=== PATIENT | female | born 1960 | race Caucasian/White ===

== ENCOUNTER 2022-12-03 11:15 | Emergency (ER) | payer OTHER, SELFPAY ==
[2022-12-03 11:22] VITALS: BP 145/93; PULSE 82; RESP 20; TEMP 37.2; O2SAT 100
--- NOTE | 2022-12-03 12:08 | ED.URI ---
HPI - URI/Sore Throat General Chief Complaint: Upper Respiratory Infection Stated Complaint: Sore Throat/Headache Time Seen by Provider: 12/03/22 12:00 Source: patient, RN notes reviewed and old records reviewed Mode of arrival: ambulatory Limitations: no limitations History of Present Illness HPI Narrative: 62 year old female who presents to [facility] with complaints of 3-4 day history of mild headache and some low grade fevers highest 99.6F, with some sore throat and occasional cough which is worse at night. Patient reports that a girl in her office tested positive for strep on Friday. Patient reports that she has been taking DayQuil for her symptoms without resolution. MD elicited complaint: cough and sore throat Onset (ago): day(s) (3-4) Pain scale (0-10): 3 Treatments prior to arrival: other (DayQuil) Related Data Home Medications Medication Instructions Recorded Confirmed atorvastatin 20 mg tablet mg 12/03/22 cyclobenzaprine 5 mg tablet mg 12/03/22 lurasidone 20 mg tablet (Latuda) mg 12/03/22 sertraline 100 mg tablet mg 12/03/22 zolpidem 5 mg tablet mg 12/03/22 Allergies Allergy/AdvReac Type Severity Reaction Status Date / Time No Known Allergies Allergy Verified 12/03/22 11:23 Review of Systems Review of Systems: CONSTITUTIONAL:Reports malaise, chills, sweats, or fever. EYES: Denies visual changes, redness, or discharge. ENT: Reports rhinorrhea, congestion, no sinus pain, no otalgia positive for sore throat. CARDIOVASCULAR: Denies chest pain, palpitations, or edema. RESPIRATORY: Reports cough.? Denies dyspnea. GASTROINTESTINAL: Denies abdominal pain, nausea, vomiting, diarrhea SKIN: Denies rash or itching. MUSCULOSKELETAL: Denies myalgia. NEUROLOGIC: Reports headache. All systems reviewed & are unremarkable except as noted in HPI and below PMFSH Past Medical History Medical History (Updated 12/04/22 @ 10:10 by Galina Truong NP) Anxiety Depression Hyperlipidemia Insomnia Social History Social History (Updated 12/04/22 @ 10:02 by Galina Truong NP) Smoking status: Never smoker Alcohol intake: current Alcohol use details: social Substance use type: does not use Living arrangements: with family Gender identity (if verbalized by the patient): Female Comments At time of signature, agree with nursing past medical, surgical, social and family history. There is no relevant family history pertinent to the presenting complaint Exam Narrative: GENERAL: Well-appearing, well-nourished, and in no acute distress. HEAD: Normocephalic EYES: PERRLA, conjunctivae clear ENT: Nares clear, turbinates edematous and erythematous, clear discharge. Mucous membranes moist. TM pearly truong with dull light reflex bilaterally; no tragal tenderness. Oropharynx erythematous without lesions. Tonsils not enlarged and without exudate, no drooling, no hoarseness, no trismus, uvula midline.reports throat feels irritated NECK: Supple. No lymphadenopathy CHEST: Clear to auscultation, breath sounds equal. No wheezing, rhonchi, rales, or stridor. No respiratory distress, speaks in full sentences.SAO2 100% on room air HEART: Regular rate and rhythm. No murmur heard. SKIN: Warm, dry, no rash. NEURO: Alert and oriented x3. PSYCH: Normal mood and affect Course Course Emergency Course: Patient is aware of diagnosis, understands and agrees to treatment plan.? Anticipatory guidance given.? Patient agrees to follow-up as directed and is aware of reasons to seek care at the emergency department. Portions of this record may have been created with voice recognition software Level of Care: Express Care Visit Vital Signs Vital signs: Vital Signs Temperature 37.2 C 12/03/22 11:22 Pulse Rate 82 12/03/22 11:22 Respiratory Rate 20 12/03/22 11:22 Blood Pressure 145/93 H 12/03/22 11:22 Pulse Oximetry 100 12/03/22 11:22 Oxygen Delivery Room Air 12/03/22 11:22
== END 2022-12-03 12:33 | disposition home or self-care (01) ==
PROVIDERS: Emergency Provider Registered Nurse; PCP Internal Medicine
DX: J06.9 Acute upper respiratory infection, unspecified (principal); J02.9 Acute pharyngitis, unspecified; E78.5 Hyperlipidemia, unspecified
CPT/HCPCS: 87081; 87880; 99213; G0463